=== PATIENT | female | born 1990 ===

== ENCOUNTER 2017-04-17 18:03 | Inpatient (IN) | payer OTHER ==
[2017-04-17 18:16] VITALS: BMI 26.9
[2017-04-17] MEDS ORDERED: Lactated Ringer's 1,000 ML IV SCH (19:00)
[2017-04-17] MEDS: Lactated Ringer's 1,000 ML IV SCH (19:50)
[2017-04-17 20:56] LABS: BASO % 0.4 % (0.0-2.0); EOS # 0.1 K/uL (0.0-0.7); HEMATOCRIT 37.5 % (34.0-47.0); LYMPH # 2.3 K/uL (1.0-4.3); LYMPH % 23.9 % (20.0-40.0); MEAN CELL VOLUME 93.6 fl (81.0-99.0); MEAN CORPUSCULAR HGB CONC 33.1 g/dL (33.0-37.0); MEAN PLATELET VOLUME 10.4 fl (7.2-11.7); MONO # 0.7 K/uL (0.0-0.8); MONO % 7.1 % (0.0-10.0); NEUT # 6.4 K/uL (1.8-7.0); NEUT % 67.6 % (50.0-75.0); NRBC % 0.1 % (0.0-0.0); WHITE BLOOD COUNT 9.4 K/uL (4.8-10.8)
[2017-04-17 20:57] VITALS: BP 125/82; PULSE 81; RESP 18; TEMP 98.4; O2SAT 100
--- NOTE | 2017-04-17 21:01 | OBHP ---
Datetime: 04/17/2017 18:56 IP Adm Impression: Term, intrauterine IP Admit Plan: Admit to unit; Initiate labor induction protocol Admit Comment, IP Provider: 27 y/o @ 40.0 weeks via LMP dating here for scheduled IOL. No comp laints. Denies fever/chills, headaches, visual disturbances, CP/SOB, N/V/D/C, urinary symptoms, numbn ess/tingling. Denies VB/LOF/CTX and reports good FM. : Dr. Torres. GBS neg, HIV/RPR neg, Rubella Immune POBHx: 2 NSVDs, FT, 2 SABs PMHx: epilepisy (controlled) last episode 4 years ago MEDs: Keppra 1000mg BID, PNVs PsurgHx: none ALL: NKDA Social: Denies ETOH, tobacco, drug abuse A/P: 27 y/o @ 40.0 weeks IUP via LMP dating for Induction of Labor. -CBC, Type and Screen -Cervdil -anesthiology consult for epidural -continue Keppra 1000mg BID -case discussed and pt seen with Dr. Dane Delgado MD PGY1 @ 19:00 The patient was seen with the resident and I agree with note patient to be admitted for Cervidil a dequate pelvis vertex presentation anticipate normal vaginal delivery estimated weight 7-1/2 po unds Pelvic Type - PN: Adequate Extremities - PN: Normal Abdomen - PN: Normal Back - PN: Normal Breast - PN: Normal Lungs - PN: Normal Heart - PN: Normal Thyroid - PN: Normal Neurologic - PN: Normal HEENT - PN: Normal General - PN: Normal Presentation-Admit: Vertex Membranes, Provider: Intact Comments, ACOG Physical Exam: ROS: 12 points reviewed, found to be negative. : 1cm/thick/high Bedside u/s: vertex position Gestation - Est Wks by US: 40.0 Vital Signs Provider: Reviewed IP Chief Complaint: Scheduled induction of labor Dilatation, Provider: 1cm Effacement, Provider: Thick Station, Provider: high Genitourinary Exam: Normal DTRs - PN: Normal
[2017-04-18] MEDS: Lactated Ringer's 1,000 ML IV SCH ×2 (10:45→13:00)
[2017-04-18] MEDS ORDERED: Oxytocin 30 units/LR 500ML 30 U/500 ML BAG IV ONE ×2 (11:01→14:35)
--- NOTE | 2017-04-18 11:17 | OBPN ---
Datetime: 04/18/2017 10:58 IP Progress Impression: Reassuring heart rate IP Procedures: Sterile Vag Exam IP Progress Plan: Continue present management; Augmentation Membranes, Provider: Intact Contraction Comments Provider: irregular FHR - Baseline A Provider: 120s-130s IP Progress Note Comment: Start pitocin augmentation. Both MWB/FWB reassuring at this time. Vital Signs Provider: Reviewed; Within Normal Limits NICHD Accel Fetus A IP Provider: 15X15 FHR Category Provider Fetus A: Category I NICHD Variability Prov Fetus A: Moderate 6-25bpm Dilatation, Provider: 3 Effacement, Provider: 25 Station, Provider: -2 NICHD Decel Fetus A IP Provider: None Datetime: 04/17/2017 18:56 Gestation - Est Wks by US: 40.0 Presentation-Admit: Vertex
[2017-04-18] MEDS ORDERED: Oxycodone/Acetaminophen 5/325 mg Tab PO PRN ×2 (16:33)
--- NOTE | 2017-04-18 16:54 | OBDS ---
DELIVERY PERSONNEL Delivery Doctor: Hang Torres MD MATERNAL INFORMATION Delivery Anesthesia: Epidural Medications in Delivery: Pitocin 30 mu Estimated Blood Loss (ml): 200 Placenta Cultured: No Maternal Complications: None RN Comments: Atraumatic of a viable baby boy with Lusty cry 9/9 APGARS noted. Patient tolerat ed delivery well. Mother and infant recovering well. Provider Comments: Normal spontaneous vaginal delivery. Patient delivered viable male with Apgars of 9 and 9 at one and 5 minutes respectively. Inf ant delivered via OLIVER position. Nuchal cord 2 reduced. Placenta delivered spontaneously. Laceration repaired, as above. Uterus firm and appropriately hemostatic following delivery. EBL 300 mL. Patient tolerated delivery and repair well. No complications. LABOR SUMMARY EDC: 04/17/2017 00:00 No. Babies in Womb: 1 Attempted: No Labor Anesthesia: Epidural LABOR INFORMATION Reason for Induction: Postterm Onset of Labor: 04/17/2017 22:55 Complete Dilatation: 04/18/2017 14:00 Cervical Ripening Agents: Cervidil Oxytocin: Augmentation Group B Beta Strep: Negative Antibiotics # of Doses: 0 Steroids Given: None Reason Steroids Not Administered: Not Applicable MEMBRANES Membranes Rupture Method: Spontaneous Rupture of Membranes: 04/18/2017 14:15 Length of Rupture (hrs): 0.25 Amniotic Fluid Color: Clear Amniotic Fluid Amount: Small Amniotic Fluid Odor: Normal STAGES OF LABOR Stage 1 hrs: 15 Stage 1 min: 5 Stage 2 hrs: 0 Stage 2 min: 30 Stage 3 hrs: 0 Stage 3 min: 5 Total Time in Labor hrs: 15 Total Time in Labor min: 40 VAGINAL DELIVERY Episiotomy: None Laceration Extension: Second Degree Laceration Type: Perineal Laceration Repair: Yes Laceration Repair Note: Second-degree midline perineal laceration. Area infiltrated with 1% lidocain e. Laceration repaired with 2. 0 Rapide without complication. Patient tolerated repair well. Initial Vag Sponge Count: 15 Final Vag Sponge Count: 15 Initial Vag Sharps Count: 2 Final Vag Sharps Count: 2 Sponge Count Correct: Yes Sharps Count Correct: Yes BABY A INFORMATION Delivery Date/Time: 04/18/2017 14:30 Method of Delivery: Vaginal Born in Route : No : N/A Forceps: N/A Vacuum Extraction: N/A Shoulder Dystocia : No SHOULDER DYSTOCIA BABY A Infant Delivery Date/Time: 04/18/2017 14:30 PRESENTATION/POSITION BABY A Presentation: Cephalic Cephalic Presentation: Vertex Breech Presentation: N/A PLACENTA INFORMATION BABY A Placenta Delivery Time : 04/18/2017 14:35 Placenta Method of Delivery: Spontaneous Placenta Status: Delivered SCORES BABY A Heart Rate 1 min: >100 bpm Resp Effort 1 min: Good Cry Reflex Irritability 1 min: Cough or Sneeze or Pulls Away Muscle Tone 1 min: Active Motion Color 1 min: Body [place], Extremities Blue Resuscitation Effort 1 min: N/A SCORE 1 MIN: 9 Heart Rate 5 min: >100 bpm Resp Effort 5 min: Good Cry Reflex Irritability 5 min: Cough or Sneeze or Pulls Away Muscle Tone 5 min: Active Motion Color 5 min: Body [place], Extremities Blue Resuscitation Effort 5 min: N/A SCORE 5 MIN: 9 INFORMATION BABY A Gestational Age at Delivery: 40.0 Gestational Status: Term Outcome : Liveborn Infant Condition : Stable Sex: Male IDENTIFICATION/MEDS BABY A ID Band Number: [id number] ID Band Location: Right Leg; Right Arm WEIGHT/LENGTH BABY A Birthweight (gms): 3255 Weight (lb): 7 Infant Weight (oz): 3 CORD INFORMATION BABY A No. Cord Vessels: 3 Nuchal Cord : Around Neck x2, Loose Cord Blood Taken: N/A Suction: Mouth; Nose ASSESSMENT BABY A Infant Complications: None Physical Findings at Delivery: Within Normal Limits Infant Respirations: Appears Normal [employer]athouse Keeper/ALS Called : No Transferred To: Remains with Mother
[2017-04-19 07:13] LABS: BASO % 0.1 % (0.0-2.0); EOS # 0.1 K/uL (0.0-0.7); EOS % 1.1 % (0.0-4.0); HEMATOCRIT 32.4 % (34.0-47.0); LYMPH # 2.2 K/uL (1.0-4.3); LYMPH % 22.3 % (20.0-40.0); MEAN CORPUSCULAR HEMOGLOBIN 31.4 pg (27.0-31.0); MEAN CORPUSCULAR HGB CONC 33.8 g/dL (33.0-37.0); MONO # 0.9 K/uL (0.0-0.8); MONO % 9.1 % (0.0-10.0); NEUT # 6.6 K/uL (1.8-7.0); NEUT % 67.4 % (50.0-75.0); RED CELL DISTRIBUTION WIDTH 14.2 % (11.5-14.5); WHITE BLOOD COUNT 9.8 K/uL (4.8-10.8)
[2017-04-19] MEDS: Multivitamin With Minerals Tab PO SCH (08:30)
--- NOTE | 2017-04-19 10:11 | OBPPN ---
Datetime: 04/19/2017 09:24 PP Pain Prov: Within normal limits PP Nausea Prov: Denies PP Flatus Prov: Yes PP Breasts Prov: Not Done PP Heart Prov: Normal PP Lungs Prov: Normal PP Abdomen/Uterus Prov: Normal PP Lochia Prov: Not Done PP Vulva/Perineum Prov: Not Done PP CVA Tenderness Prov: Normal PP Extremities Prov: Normal PP C/S Incision Prov: Normal PP Impression Prov: Normal progression PP Plan Prov: Continue present management PP Progress Note Prov: Patient did well and her complaints pain well-controlled without difficulty r eports lochia Vital signs stable afebrile Uterus firm below the umbilicus Extremities no Homans day #1 Encourage ambulation, encourage breast-feeding Motrin as needed Anticipate discharge in a.m. Vital Signs Provider PP: Reviewed
--- NOTE | 2017-04-20 09:13 | OBDCSUM ---
Datetime: 04/20/2017 09:12 Discharged to, Provider: Home Follow up at, Provider: Brian Disch Instr Activity: Normal activity Disch Instr Diet: Regular Discharge Instructions, Provider: Routine instructions given Discharge Diagnosis, Provider: Term Delivered Follow up in weeks, Provider: 6 weeks Disch Referrals: None Contraception discussed, Prov: Yes Disch Activity Restrictions: No sexual activity; Nothing in vagina - Kenel, tampons, douche Discharge Comment, Provider: clear For discharge Contraception after Delivery: Undecided
--- NOTE | 2017-04-20 09:13 | OBPPN ---
Datetime: 04/20/2017 09:11 PP Pain Prov: Within normal limits PP Nausea Prov: Denies PP Flatus Prov: Yes PP Breasts Prov: Not Done PP Heart Prov: Normal PP Lungs Prov: Normal PP Abdomen/Uterus Prov: Normal PP Lochia Prov: Not Done PP Vulva/Perineum Prov: Not Done PP CVA Tenderness Prov: Normal PP Extremities Prov: Normal PP Impression Prov: Normal progression PP Plan Prov: Discharge PP Progress Note Prov: Patient complaints ambulate and tolerating diet and voiding without difficult y reports minimal lochia Vital signs stable afebrile Uterus firm below the umbilicus Extremities no Homans day #2 Discharged home Follow up in 6 weeks Nothing per vagina No heavy lifting Vital Signs Provider PP: Reviewed
[2017-04-20] MEDS: Multivitamin With Minerals Tab PO SCH (09:15)
== END 2017-04-20 14:37 | disposition home or self-care (01) | DRG 373 ==
LOC: H.EROB2 18:03 → H.L&D 18:46 → H.OB/GYN 04-18 17:23
PROVIDERS: ADMIT Obstetrics & Gynecology Gynecology; ATTEND Obstetrics & Gynecology Gynecology
PROC: 4A1HXCZ Monitoring of Products of Conception, Cardiac Rate, External Approach (ICD-10-PCS; 2017-04-17)
PROC: 10E0XZZ Delivery of Products of Conception, External Approach (ICD-10-PCS; principal; 2017-04-18)
PROC: 0KQM0ZZ Repair Perineum Muscle, Open Approach (ICD-10-PCS; 2017-04-18)
DX: O69.81X0 Labor and delivery complicated by cord around neck, without compression, not applicable or unspecified (principal); O48.0 Post-term pregnancy; Z37.0 Single live birth; O70.1 Second degree perineal laceration during delivery; Z3A.40 40 weeks gestation of pregnancy